=== PATIENT | male | born 1955 | race Caucasian/White ===

== ENCOUNTER 2018-07-28 16:58 | Emergency (ER) | payer OTHER ==
[2018-07-28] MEDS ORDERED: IBUPROFEN 600 MG TAB PO ONE ×2 (18:03→18:04)
[2018-07-28] MEDS ORDERED: OXYCODONE/APAP 5/325 TAB PO ONE (18:36)
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
[2018-07-28 19:24] VITALS: BP 136/78
== END 2018-07-28 19:24 | disposition home or self-care (01) ==
PROC: 2W3FX1Z Immobilization of Left Hand using Splint (ICD-10-PCS; principal; 2018-07-28)
DX: S69.92XA Unspecified injury of left wrist, hand and finger(s), initial encounter (principal); V18.0XXA Pedal cycle driver injured in noncollision transport accident in nontraffic accident, initial encounter; Y92.480 Sidewalk as the place of occurrence of the external cause